=== PATIENT | female | born 1970 | race Caucasian/White ===

== ENCOUNTER 2017-03-10 02:00 | Emergency (ER) | payer MEDICAID ==
[~2017-03-10] VITALS: Ht 165.1 cm; Wt 54.5 kg
[2017-03-10] MEDS ORDERED: sulfamethoxazole/trimethoprim DS (800/160mg) tablet PO ONE (03:45)
[2017-03-10] MEDS ORDERED: SULF1TAB49 PO (03:50)
[2017-03-10] MEDS ORDERED: ibuprofen 200mg tablet PO ONE (04:00)
[2017-03-10 04:07] VITALS: BP 126/79
== END 2017-03-10 04:08 | disposition home or self-care (01) ==
LOC: ER 02:00
DX: L02.511 Cutaneous abscess of right hand (principal); F15.10 Other stimulant abuse, uncomplicated; F17.200 Nicotine dependence, unspecified, uncomplicated; F12.10 Cannabis abuse, uncomplicated; Z88.5 Allergy status to narcotic agent
CPT/HCPCS: 99283; A6449

== ENCOUNTER 2017-03-12 14:50 | Emergency (ER) | payer MEDICAID ==
[~2017-03-12] VITALS: Ht 165.1 cm; Wt 51.0 kg
[~2017-03-12 14:50] MED LIST: SULF1TAB49 PO
[2017-03-12] MEDS ORDERED: TETanus/Pertussis (Acell)/Diphther VAC/PF (Tdap-Adult) 0.5ml syringe IM ONE (15:50)
[2017-03-12] MEDS ORDERED: BUPIVAcaine 0.5% inj/PF 30 ml vial IJ ONE (15:50)
[2017-03-12 16:51] VITALS: BP 132/85
== END 2017-03-12 17:00 | disposition home or self-care (01) ==
LOC: ER 14:52
DX: L02.511 Cutaneous abscess of right hand (principal); F12.10 Cannabis abuse, uncomplicated; F15.10 Other stimulant abuse, uncomplicated; Z88.6 Allergy status to analgesic agent
CPT/HCPCS: 10060; 90471; 90715; 99283; A6255; A6266; A6449; J3490

== ENCOUNTER 2017-08-05 12:09 | Emergency (ER) | payer MEDICAID | END 2017-08-05 13:31 | disposition left against medical advice (07) | LOC: ER 12:09 | DX: R53.83 Other fatigue (principal); Z53.21 Procedure and treatment not carried out due to patient leaving prior to being seen by health care provider ==

== ENCOUNTER 2017-08-22 20:19 | Emergency (ER) | payer MEDICAID ==
[~2017-08-22] VITALS: Ht 165.1 cm; Wt 54.5 kg
[2017-08-22 21:37] LABS: CLARITY,URINE SLIGHTLY CLOUDY (Clear); COLOR,URINE YELLOW (Yellow); GLUCOSE, URINE NEGATIVE (Neg); KETONES,URINE NEGATIVE (Neg); LEUKOCYTE ESTERASE ,URINE MODERATE (Neg); NITRITES, URINE NEGATIVE (Neg); OCCULT BLOOD,URINE MODERATE (Neg); PROTEIN,URINE NEGATIVE (Neg); UROBILINOGEN,URINE 0.2 E.U/dL (0.2-1.0)
[2017-08-22 21:38] LABS: URINE HCG NEGATIVE (NEG)
[2017-08-22 22:00] LABS: UA COLLECTION TYPE CLN CATCH MIDSTREAM
[2017-08-22 22:01] LABS: BACTERIA,URINE FEW /HPF (Neg); SQUAMOUS EPITHELIAL CELL,UR MODERATE /LPF (FEW); WBC,URINE 20-30 /HPF (0-4)
[2017-08-22 22:52] LABS: URINE AMPHETAMINE SCREEN POSITIVE (Neg); URINE BARBITUATE SCREEN NEGATIVE (Neg); URINE BENZODIAZEPINES SCREEN NEGATIVE (Neg); URINE CANNABINOID SCREEN POSITIVE (Neg); URINE COCAINE SCREEN NEGATIVE (Neg); URINE METHADONE SCREEN NEGATIVE (Neg); URINE OPIATE SCREEN NEGATIVE (Neg); URINE PHENCYCLIDINE SCREEN NEGATIVE (Neg)
[2017-08-22] MEDS ORDERED: sulfamethoxazole/trimethoprim DS (800/160mg) tablet PO ONE (23:25)
[2017-08-22] MEDS ORDERED: cephalexin 250mg capsule PO ONE (23:25)
[2017-08-22] MEDS ORDERED: CEPH-572 PO (23:28)
[2017-08-22] MEDS ORDERED: SULF1TAB49 PO (23:28)
[2017-08-23 00:15] LABS: ALANINE AMINOTRANSFERASE 18 U/L (12-78); ALBUMIN 4.1 G/DL (3.4-5.0); ALBUMIN/GLOBULIN RATIO 1.1 (1.1-1.5); ALKALINE PHOSPHATASE 76 IU/L (46-116); ANION GAP 6 (8-16); ASPARTATE AMINO TRANSFERASE 17 U/L (10-37); BILIRUBIN,TOTAL 1.3 MG/DL (0.1-1.0); BLOOD UREA NITROGEN 13 MG/DL (7-18); BUN/CREATININE RATIO 14.4 (6.6-38.0); CALCIUM 8.9 MG/DL (8.5-10.1); CHLORIDE 105 MMOL/L (99-107); ETHANOL < 0.010 GM/DL (0.0-0.010); GLUCOSE 78 MG/DL (70-104); POTASSIUM 3.6 MMOL/L (3.5-5.1); SODIUM 140 MMOL/L (135-145); TOTAL CARBON DIOXIDE 29.4 MMOL/L (24-32); TOTAL PROTEIN 7.8 G/DL (6.4-8.2); eGFR 68 ML/MIN
[2017-08-23 00:22] LABS: BASOPHILS % (AUTO) 0.6 % (0-1); EOSINOPHILS # (AUTO) 0.1 X10'3 (0-0.9); EOSINOPHILS % (AUTO) 1.7 % (0-6); HEMATOCRIT 37.7 % (35.0-45.0); HEMOGLOBIN 12.7 g/dl (12.0-16.0); LYMPHOCYTES # (AUTO) 2.5 X10'3 (1.1-4.8); LYMPHOCYTES % (AUTO) 33.6 % (21-51); MEAN CORPUSCULAR HEMOGLOBIN 27.6 PG (27.0-31.0); MEAN CORPUSCULAR HGB CONC 33.6 % (33.0-36.5); MEAN PLATELET VOLUME 8.2 FL (7.4-10.4); MONOCYTES # (AUTO) 0.4 X10'3 (0-0.9); NEUTROPHILS # (AUTO) 4.3 X10'3 (1.8-7.7); NEUTROPHILS % (AUTO) 58.1 % (42-75); PLATELET COUNT 319 X10'3 (140-440); RED CELL DISTRIBUTION WIDTH 17.4 % (11.5-14.5); WHITE BLOOD COUNT 7.4 X10'3 (4.5-11.0)
[2017-08-23] MEDS ORDERED: ibuprofen tablet 400 MG TABLET PO ONE (00:25)
[2017-08-23] MEDS ORDERED: NO HOME MEDS (02:57)
[2017-08-23] MEDS ORDERED: ziprasidone 20mg capsule PO ONE ×3 (12:44→15:15)
[2017-08-23] MEDS: ziprasidone 20mg capsule PO SCH (21:13)
[2017-08-23] MEDS: sulfamethoxazole/trimethoprim DS (800/160mg) tablet PO SCH (21:13)
[2017-08-24] MEDS ORDERED: cephalexin 250mg capsule PO SCH
[2017-08-24 05:30] VITALS: BP 97/61
[2017-08-24] MEDS: ziprasidone 20mg capsule PO SCH (11:05)
[2017-08-24] MEDS: sulfamethoxazole/trimethoprim DS (800/160mg) tablet PO SCH (11:06)
[2017-08-24] MEDS ORDERED: lactobacillus rhamnosus 10,000 MMU CELLS/CAPSULE PO SCH (20:00)
== END 2017-08-24 15:05 | disposition home or self-care (01) ==
LOC: ER 20:20
DX: N39.0 Urinary tract infection, site not specified (principal); R31.9 Hematuria, unspecified; F15.10 Other stimulant abuse, uncomplicated; F12.10 Cannabis abuse, uncomplicated; R45.851 Suicidal ideations; K62.89 Other specified diseases of anus and rectum; F41.9 Anxiety disorder, unspecified; N89.8 Other specified noninflammatory disorders of vagina; Z88.1 Allergy status to other antibiotic agents; Z88.5 Allergy status to narcotic agent; Z79.899 Other long term (current) drug therapy
CPT/HCPCS: 36415; 80053; 80305; 80320; 81001; 81025; 84443; 85025; 87088; 99284; 99285

== ENCOUNTER 2017-12-29 18:13 | Emergency (ER) | payer OTHER ==
[~2017-12-29] VITALS: Ht 165.1 cm; Wt 55.0 kg
[~2017-12-29 18:13] MED LIST changes: +NO HOME MEDS; -SULF1TAB49 PO
[2017-12-29 18:30] VITALS: BP 134/80
== END 2017-12-29 18:47 | disposition left against medical advice (07) ==
LOC: ER 18:13
DX: Z76.0 Encounter for issue of repeat prescription (principal); Z53.21 Procedure and treatment not carried out due to patient leaving prior to being seen by health care provider

== ENCOUNTER 2020-02-18 15:48 | Emergency (ER) | payer MEDICAID ==
[~2020-02-18] VITALS: Ht 165.1 cm; Wt 72.2 kg
[2020-02-18 15:50] VITALS: BP 120/75
== END 2020-02-18 16:34 | disposition home or self-care (01) ==
LOC: ER 15:48
DX: Z02.89 Encounter for other administrative examinations (principal); F41.9 Anxiety disorder, unspecified; F15.90 Other stimulant use, unspecified, uncomplicated; Z72.89 Other problems related to lifestyle; Z88.1 Allergy status to other antibiotic agents; Z88.5 Allergy status to narcotic agent; Z88.8 Allergy status to other drugs, medicaments and biological substances
CPT/HCPCS: 99281

== ENCOUNTER 2020-02-26 08:54 | Emergency (ER) | payer MEDICAID ==
[~2020-02-26] VITALS: Ht 165.1 cm; Wt 61.4 kg
[2020-02-26 12:09] VITALS: BP 125/83
== END 2020-02-26 12:12 | disposition home or self-care (01) ==
LOC: ER 08:55
DX: Z02.89 Encounter for other administrative examinations (principal); F15.90 Other stimulant use, unspecified, uncomplicated; R10.84 Generalized abdominal pain; F41.9 Anxiety disorder, unspecified; Z72.89 Other problems related to lifestyle; Z88.1 Allergy status to other antibiotic agents; Z88.5 Allergy status to narcotic agent; Z88.8 Allergy status to other drugs, medicaments and biological substances
CPT/HCPCS: 99281

== ENCOUNTER 2020-03-04 09:15 | Emergency (ER) | payer MEDICAID ==
[~2020-03-04] VITALS: Ht 165.1 cm; Wt 59.1 kg
[2020-03-04] MEDS ORDERED: olanzapine 10mg tablet PO STA (10:18)
[2020-03-04] MEDS ORDERED: acetaminophen 325mg tablet PO ONE (10:20)
[2020-03-04 10:59] LABS: URINE HCG NEGATIVE (NEG)
[2020-03-04 11:00] LABS: CLARITY,URINE CLEAR (Clear); COLOR,URINE YELLOW (Yellow); GLUCOSE, URINE NEGATIVE (Neg); KETONES,URINE NEGATIVE (Neg); LEUKOCYTE ESTERASE ,URINE NEGATIVE (Neg); NITRITES, URINE NEGATIVE (Neg); OCCULT BLOOD,URINE NEGATIVE (Neg); PROTEIN,URINE NEGATIVE (Neg); UROBILINOGEN,URINE 0.2 E.U/dL (0.2-1.0)
[2020-03-04 11:03] LABS: UA COLLECTION TYPE VOIDED
[2020-03-04 11:13] LABS: URINE AMPHETAMINE SCREEN NEGATIVE (Neg); URINE BARBITUATE SCREEN NEGATIVE (Neg); URINE BENZODIAZEPINES SCREEN NEGATIVE (Neg); URINE CANNABINOID SCREEN NEGATIVE (Neg); URINE COCAINE SCREEN NEGATIVE (Neg); URINE METHADONE SCREEN NEGATIVE (Neg); URINE OPIATE SCREEN NEGATIVE (Neg); URINE PHENCYCLIDINE SCREEN NEGATIVE (Neg)
[2020-03-04] MEDS ORDERED: HYDR-3686 PO (11:34)
[2020-03-04] MEDS ORDERED: VENL150C2 PO (11:34)
[2020-03-04 12:16] LABS: BASOPHILS % (AUTO) 0.2 % (0-1); EOSINOPHILS % (AUTO) 0.1 % (0-6); HEMOGLOBIN 13.2 g/dl (12.0-16.0); LYMPHOCYTES # (AUTO) 1.5 X10'3 (1.1-4.8); LYMPHOCYTES % (AUTO) 25.4 % (21-51); MEAN CORPUSCULAR HEMOGLOBIN 30.2 PG (27.0-31.0); MEAN CORPUSCULAR VOLUME 88.9 FL (78-98); MEAN PLATELET VOLUME 8.5 FL (7.4-10.4); MONOCYTES # (AUTO) 0.3 X10'3 (0-0.9); MONOCYTES % (AUTO) 5.2 % (2-12); NEUTROPHILS # (AUTO) 4.1 X10'3 (1.8-7.7); NEUTROPHILS % (AUTO) 69.1 % (42-75); PLATELET COUNT 226 X10'3 (140-440); RED BLOOD COUNT 4.38 X10'6 (4.20-5.60); RED CELL DISTRIBUTION WIDTH 13.7 % (11.5-14.5)
[2020-03-04 12:23] LABS: ALANINE AMINOTRANSFERASE 16 U/L (12-78); ALBUMIN 3.5 G/DL (3.4-5.0); ALBUMIN/GLOBULIN RATIO 1.2 (1.1-1.5); ALKALINE PHOSPHATASE 54 IU/L (46-116); ANION GAP 4 (8-16); ASPARTATE AMINO TRANSFERASE 11 U/L (10-37); BLOOD UREA NITROGEN 8 MG/DL (7-18); BUN/CREATININE RATIO 12.1 (6.6-38.0); CALCIUM 8.4 MG/DL (8.5-10.1); CHLORIDE 107 MMOL/L (99-107); CREATININE 0.66 MG/DL (0.40-0.90); ETHANOL < 0.010 GM/DL (0.0-0.010); GLUCOSE 95 MG/DL (70-104); POTASSIUM 3.6 MMOL/L (3.5-5.1); SODIUM 141 MMOL/L (135-145); TOTAL PROTEIN 6.4 G/DL (6.4-8.2); eGFR > 90 ML/MIN
--- NOTE | 2020-03-04 12:56 | NUR ---
Pt ambulates to overflow. Lunch here and pt able to eat lunch. She denies any food allergies or specialized diet
--- NOTE | 2020-03-04 14:25 | NUR ---
PACKET FAXED TO [facility]
--- NOTE | 2020-03-04 14:26 | NUR ---
Pt ambulatory to bathroom. Back to bed to sleep
--- NOTE | 2020-03-04 17:02 | NUR ---
Pt sleeping, resp even, unlabored.
[2020-03-04] MEDS ORDERED: acetaminophen 325mg tablet PO PRN (17:55)
--- NOTE | 2020-03-04 17:58 | NUR ---
Pt c/o CASTRO. Per MD Geneva Moura for Tyl order PRN q 6 for pain
--- NOTE | 2020-03-04 19:21 | NUR ---
Pt ate all of dinner and is sleeping in bed; she states she is feeling tired from the Zyprexa given to her earlier. She falls asleep easily througout the assessment. Pt states her headache was alleviated with some Tylenol. Pt denies all MH signs and symptoms currently, affect is blunted, eye contact is good, and thought process is linear as she is answering questions directly and appropriately; even though ED report mentions "AH that has been ongoing for weeks and interrupting her ability to sleep" and that "she has always heard voices". Pt states she is enjoying the [facility] but that she was called in to the ED for her "headache". Pt is a poor historian at this time as her answers are not corraboating with the ED notes nor the report this RN recieved. Will continue to [place].
--- NOTE | 2020-03-04 20:03 | NUR ---
[facility] attempted to evaluate pt but she kept falling back asleep so he will try later. Pt did verbalize some paranoid thinking during their interaction about "people out to get her."
[2020-03-04] MEDS: hydrOXYzine 25 MG tablet PO SCH (21:10)
[2020-03-04] MEDS: venlafaxine XR 75mg capsule (Q24H) PO SCH (21:10)
--- NOTE | 2020-03-04 22:50 | NUR ---
pt resting comfortably, breathing even and unlabored.
--- NOTE | 2020-03-05 04:17 | NUR ---
Pt sleeping comfortably on left side, breathing even and unlabored.
[2020-03-05 06:14] VITALS: BP 93/49
--- NOTE | 2020-03-05 06:44 | NUR ---
Received Pt in bed sleeping w/o distress.
[2020-03-05] MEDS: venlafaxine XR 75mg capsule (Q24H) PO SCH (08:16)
[2020-03-05] MEDS: hydrOXYzine 25 MG tablet PO SCH (08:17)
--- NOTE | 2020-03-05 08:59 | NUR ---
Pt awoke for breakfast and ate well. Pt took AM meds w/o issue. Pt is A&O X4 and polite in conversation. [facility] clinician evaluated Pt and recomends return to [facility] ([phone]). Unsuccessful attempts to contact [place].
== END 2020-03-05 11:00 ==
LOC: ER 09:16
DX: R44.1 Visual hallucinations (principal); R51.9 Headache, unspecified; R11.0 Nausea; F41.9 Anxiety disorder, unspecified; F32.9 Major depressive disorder, single episode, unspecified; F17.200 Nicotine dependence, unspecified, uncomplicated; F15.90 Other stimulant use, unspecified, uncomplicated; Z72.89 Other problems related to lifestyle; Z88.1 Allergy status to other antibiotic agents; Z88.5 Allergy status to narcotic agent; Z88.8 Allergy status to other drugs, medicaments and biological substances; Z79.899 Other long term (current) drug therapy
CPT/HCPCS: 36415; 80053; 80305; 80320; 81003; 81025; 85025; 99285; Q0177

== ENCOUNTER 2021-02-19 00:59 | Emergency (ER) | payer MEDICAID, OTHER ==
[~2021-02-19] VITALS: Ht 165.1 cm; Wt 81.8 kg
[~2021-02-19 00:59] MED LIST changes: +HYDR-3686 PO; -NO HOME MEDS; +VENL150C2 PO
[2021-02-19 01:05] VITALS: BP 149/100
[2021-02-19] MEDS ORDERED: ATI1T PO (01:16)
== END 2021-02-19 01:24 | disposition home or self-care (01) ==
LOC: ER 00:59
DX: F41.1 Generalized anxiety disorder (principal); F32.9 Major depressive disorder, single episode, unspecified; F15.90 Other stimulant use, unspecified, uncomplicated; Z72.89 Other problems related to lifestyle; Z88.1 Allergy status to other antibiotic agents; Z88.8 Allergy status to other drugs, medicaments and biological substances; Z79.899 Other long term (current) drug therapy
CPT/HCPCS: 99283

== ENCOUNTER 2023-11-07 01:37 | Emergency (ER) | payer OTHER ==
[~2023-11-07] VITALS: Ht 165.1 cm; Wt 68.2 kg
[~2023-11-07 01:37] MED LIST changes: +ATI1T PO; -VENL150C2 PO; +VENL150C5 PO
[2023-11-07 01:41] VITALS: BP 119/75; PULSE 63; RESP 18; TEMP 98.5; O2SAT 100
[2023-11-07 02:35] LABS: BASOPHILS % (AUTO) 0.1 % (0-1); EOSINOPHILS % (AUTO) 0.3 % (0-6); HEMATOCRIT 31.6 % (35.0-45.0); HEMOGLOBIN 10.1 g/dl (12.0-16.0); LYMPHOCYTES % (AUTO) 35.9 % (21-51); MEAN CORPUSCULAR HEMOGLOBIN 26.8 PG (27.0-31.0); MEAN CORPUSCULAR VOLUME 83.8 FL (78-98); MEAN PLATELET VOLUME 8.2 FL (7.4-10.4); MONOCYTES # (AUTO) 0.5 X10'3 (0-0.9); MONOCYTES % (AUTO) 7.9 % (2-12); NEUTROPHILS # (AUTO) 3.2 X10'3 (1.8-7.7); NEUTROPHILS % (AUTO) 55.8 % (42-75); PLATELET COUNT 267 X10'3 (140-440); RED BLOOD COUNT 3.77 X10'6 (4.20-5.60); RED CELL DISTRIBUTION WIDTH 18.4 % (11.5-14.5); WHITE BLOOD COUNT 5.7 X10'3 (4.5-11.0)
[2023-11-07 02:58] LABS: ALBUMIN 3.2 G/DL (3.4-5.0); ANION GAP 7 (8-16); BLOOD UREA NITROGEN 15 MG/DL (7-18); BUN/CREATININE RATIO 19.5 (10.0-20.0); CALCIUM 8.3 MG/DL (8.5-10.1); CHLORIDE 110 MMOL/L (99-107); CREATININE 0.77 MG/DL (0.40-0.90); GLUCOSE 93 MG/DL (70-104); POTASSIUM 3.4 MMOL/L (3.5-5.1); SODIUM 143 MMOL/L (135-145); THYROID STIMULATING HORMONE 2.25 ulU/ml (0.34-4.50); TOTAL CARBON DIOXIDE 25.6 MMOL/L (24-32); eCRCL 78 ML/MIN; eGFR 79 ML/MIN
[2023-11-07 03:00] LABS: ETHANOL < 10 MG/DL (<10)
== END 2023-11-07 03:50 | disposition home or self-care (01) ==
LOC: ER 01:37 → EEVIPCON 01:37 → ER 03:50
DX: Z00.00 Encounter for general adult medical examination without abnormal findings (principal); F41.9 Anxiety disorder, unspecified; F32.A Depression, unspecified; F15.90 Other stimulant use, unspecified, uncomplicated; Z72.89 Other problems related to lifestyle; Z88.2 Allergy status to sulfonamides; Z88.8 Allergy status to other drugs, medicaments and biological substances; Z79.899 Other long term (current) drug therapy
CPT/HCPCS: 36415; 80048; 80320; 84443; 85025; 99283; J7030

== ENCOUNTER 2023-11-18 03:09 | Emergency (ER) | payer OTHER ==
[~2023-11-18] VITALS: Ht 165.1 cm; Wt 72.7 kg
[2023-11-18 04:35] LABS: BASOPHILS % (AUTO) 0.4 % (0-1); EOSINOPHILS % (AUTO) 0.3 % (0-6); HEMATOCRIT 37.2 % (35.0-45.0); HEMOGLOBIN 11.9 g/dl (12.0-16.0); LYMPHOCYTES # (AUTO) 1.9 X10'3 (1.1-4.8); MEAN CORPUSCULAR HEMOGLOBIN 26.4 PG (27.0-31.0); MEAN CORPUSCULAR HGB CONC 31.9 g/dL (33.0-36.5); MEAN CORPUSCULAR VOLUME 82.6 FL (78-98); MEAN PLATELET VOLUME 8.5 FL (7.4-10.4); MONOCYTES # (AUTO) 0.5 X10'3 (0-0.9); MONOCYTES % (AUTO) 8.1 % (2-12); NEUTROPHILS # (AUTO) 3.5 X10'3 (1.8-7.7); NEUTROPHILS % (AUTO) 59.2 % (42-75); PLATELET COUNT 258 X10'3 (140-440); RED CELL DISTRIBUTION WIDTH 17.1 % (11.5-14.5); WHITE BLOOD COUNT 5.9 X10'3 (4.5-11.0)
[2023-11-18 04:53] LABS: ANION GAP 9 (8-16); BLOOD UREA NITROGEN 13 MG/DL (7-18); CALCIUM 9.3 MG/DL (8.5-10.1); CHLORIDE 108 MMOL/L (99-107); CREATININE 0.81 MG/DL (0.40-0.90); GLUCOSE 104 MG/DL (70-104); SODIUM 144 MMOL/L (135-145); THYROID STIMULATING HORMONE 1.86 ulU/ml (0.34-4.50); TOTAL CARBON DIOXIDE 26.6 MMOL/L (24-32); eCRCL 73 ML/MIN; eGFR 74 ML/MIN
[2023-11-18 04:55] LABS: ETHANOL < 10 MG/DL (<10)
[2023-11-18] MEDS ORDERED: ASPI-1265 PO (05:11)
[2023-11-18] MEDS ORDERED: ASPI1TAB9 (05:14)
[2023-11-18 05:47] LABS: BILIRUBIN,URINE NEGATIVE (Neg); COLOR,URINE YELLOW (Yellow); GLUCOSE, URINE NEGATIVE (Neg); KETONES,URINE NEGATIVE (Neg); LEUKOCYTE ESTERASE ,URINE NEGATIVE (Neg); OCCULT BLOOD,URINE NEGATIVE (Neg); PROTEIN,URINE 30 mg/dl (Neg); UROBILINOGEN,URINE 0.2 E.U/dL (0.2-1.0)
[2023-11-18 05:50] LABS: CLARITY,URINE SLIGHTLY CLOUDY (Clear); NITRITES, URINE NEGATIVE (Neg); UA COLLECTION TYPE CLN CATCH MIDSTREAM
[2023-11-18 06:04] LABS: BACTERIA,URINE FEW /HPF (Neg); RBC,URINE NONE SEEN /HPF (0-2); SQUAMOUS EPITHELIAL CELL,UR MODERATE /LPF (FEW); URIC ACID CRYSTALS 2+ /HPF (NEGATIVE)
[2023-11-18 06:05] LABS: MUCUS STRANDS MANY /LPF (Neg)
[2023-11-18 06:26] LABS: URINE AMPHETAMINE SCREEN POSITIVE (Neg); URINE BARBITUATE SCREEN NEGATIVE (Neg); URINE BENZODIAZEPINES SCREEN NEGATIVE (Neg); URINE CANNABINOID SCREEN POSITIVE (Neg); URINE COCAINE SCREEN NEGATIVE (Neg); URINE METHADONE SCREEN NEGATIVE (Neg); URINE OPIATE SCREEN NEGATIVE (Neg); URINE PHENCYCLIDINE SCREEN NEGATIVE (Neg)
[2023-11-18 08:25] VITALS: TEMP 97.7
[2023-11-18 14:36] VITALS: BP 137/72; PULSE 82; RESP 16; O2SAT 100
== END 2023-11-18 14:38 | disposition home or self-care (01) ==
LOC: ER 03:11
DX: Z73.6 Limitation of activities due to disability (principal); F41.9 Anxiety disorder, unspecified; F32.A Depression, unspecified; F15.90 Other stimulant use, unspecified, uncomplicated; Z88.1 Allergy status to other antibiotic agents; Z88.8 Allergy status to other drugs, medicaments and biological substances; Z79.82 Long term (current) use of aspirin; Z72.89 Other problems related to lifestyle; Z20.822 Contact with and (suspected) exposure to COVID-19
CPT/HCPCS: 36415; 80048; 80305; 80320; 81001; 84443; 85025; 87811; 99284

== ENCOUNTER 2023-12-05 00:42 | Emergency (ER) | payer OTHER ==
[~2023-12-05] VITALS: Ht 165.1 cm; Wt 66.0 kg
[~2023-12-05 00:42] MED LIST changes: +ASPI-1265 PO; +ASPI1TAB9; -ATI1T PO; -HYDR-3686 PO; -VENL150C5 PO
[2023-12-05 00:47] VITALS: TEMP 98.3
[2023-12-05 01:21] LABS: BASOPHILS % (AUTO) 0.2 % (0-1); EOSINOPHILS % (AUTO) 0.2 % (0-6); HEMATOCRIT 35.5 % (35.0-45.0); HEMOGLOBIN 11.5 g/dl (12.0-16.0); LYMPHOCYTES # (AUTO) 1.9 X10'3 (1.1-4.8); MEAN CORPUSCULAR HEMOGLOBIN 27.3 PG (27.0-31.0); MEAN CORPUSCULAR HGB CONC 32.3 g/dL (33.0-36.5); MEAN CORPUSCULAR VOLUME 84.4 FL (78-98); MEAN PLATELET VOLUME 8.8 FL (7.4-10.4); MONOCYTES # (AUTO) 0.5 X10'3 (0-0.9); MONOCYTES % (AUTO) 6.7 % (2-12); NEUTROPHILS # (AUTO) 5.3 X10'3 (1.8-7.7); NEUTROPHILS % (AUTO) 67.9 % (42-75); PLATELET COUNT 314 X10'3 (140-440); RED BLOOD COUNT 4.21 X10'6 (4.20-5.60); RED CELL DISTRIBUTION WIDTH 17.2 % (11.5-14.5); WHITE BLOOD COUNT 7.8 X10'3 (4.5-11.0)
[2023-12-05 01:24] LABS: ALANINE AMINOTRANSFERASE 37 U/L (12-78); ALBUMIN 3.6 G/DL (3.4-5.0); ALKALINE PHOSPHATASE 60 IU/L (46-116); ANION GAP 9 (8-16); ASPARTATE AMINO TRANSFERASE 30 U/L (10-37); BILIRUBIN,TOTAL 0.6 MG/DL (0.1-1.0); BLOOD UREA NITROGEN 14 MG/DL (7-18); BUN/CREATININE RATIO 14.6 (10.0-20.0); CALCIUM 8.7 MG/DL (8.5-10.1); CHLORIDE 107 MMOL/L (99-107); CREATININE 0.96 MG/DL (0.40-0.90); GLUCOSE 87 MG/DL (70-104); LIPASE 94 U/L (16-77); POTASSIUM 3.5 MMOL/L (3.5-5.1); SODIUM 143 MMOL/L (135-145); TOTAL CARBON DIOXIDE 27.1 MMOL/L (24-32); TOTAL PROTEIN 7.1 G/DL (6.4-8.2); eCRCL 62 ML/MIN; eGFR 61 ML/MIN
[2023-12-05 01:59] LABS: BILIRUBIN,URINE NEGATIVE (Neg); CLARITY,URINE SLIGHTLY CLOUDY (Clear); COLOR,URINE YELLOW (Yellow); GLUCOSE, URINE NEGATIVE (Neg); KETONES,URINE NEGATIVE (Neg); LEUKOCYTE ESTERASE ,URINE NEGATIVE (Neg); NITRITES, URINE NEGATIVE (Neg); OCCULT BLOOD,URINE NEGATIVE (Neg); PROTEIN,URINE NEGATIVE (Neg); UROBILINOGEN,URINE 0.2 E.U/dL (0.2-1.0)
[2023-12-05 02:00] LABS: URINE HCG NEGATIVE (NEG)
[2023-12-05 02:17] LABS: UA COLLECTION TYPE CLN CATCH MIDSTREAM
[2023-12-05 02:20] LABS: BACTERIA,URINE 1+ /HPF (Neg); MUCUS STRANDS FEW /LPF (Neg); RBC,URINE 0-2 /HPF (0-2); RENAL CELLS, URINE FEW /HPF; SQUAMOUS EPITHELIAL CELL,UR MANY /LPF (FEW); TRANSITIONAL EPI CELLS,URINE FEW /HPF
[2023-12-05 02:52] VITALS: BP 122/74; PULSE 73; RESP 16; O2SAT 99
== END 2023-12-05 03:05 | disposition left against medical advice (07) ==
LOC: ER 00:43
DX: R10.9 Unspecified abdominal pain (principal); R11.0 Nausea; Z53.21 Procedure and treatment not carried out due to patient leaving prior to being seen by health care provider
CPT/HCPCS: 36415; 80053; 81001; 81025; 83690; 85025